=== PATIENT | female | born 1990 ===

== ENCOUNTER 2019-10-25 07:37 | Outpatient (CLI) | payer OTHER | END 2019-10-25 07:38 | disposition home or self-care (01) | LOC: SONOGRAMA 07:37 | DX: E04.2 Nontoxic multinodular goiter (principal) ==

== ENCOUNTER 2019-11-28 07:53 | Day surgery (SDC) | payer OTHER ==
[~2019-11-28 07:53] MED LIST: SYNTHROID50 MCG PO
[2019-11-28] MEDS ORDERED: PERCOCET 5-3251 EACH PO (13:01)
== END 2019-11-28 17:00 | disposition home or self-care (01) ==
LOC: CIR.AMB 07:53 → ADM 08:30 → CIR.AMB 08:30
DX: C73 Malignant neoplasm of thyroid gland (principal)

== ENCOUNTER 2020-04-25 06:00 | Outpatient (CLI) | payer OTHER ==
[~2020-04-25 06:00] MED LIST changes: +PERCOCET 5-3251 EACH PO
== END 2020-04-25 06:05 | disposition home or self-care (01) ==
LOC: LAB 06:00 → EDSTATUS 04-30 09:15 → CIR.AMB 04-30 09:15 → O/R 04-30 09:15 → CIR.AMB 04-30 09:30
PROVIDERS: ATTEND Surgery
DX: C73 Malignant neoplasm of thyroid gland (principal); Z20.828 Contact with and (suspected) exposure to other viral communicable diseases; Z01.812 Encounter for preprocedural laboratory examination; R05 Cough

== ENCOUNTER 2020-06-06 06:44 | Inpatient (IN) | payer OTHER ==
[~2020-06-06] VITALS: Ht 165.1 cm; Wt 67.1 kg
[2020-06-11] MEDS ORDERED: SYNTHROID88 MCG PO (08:25)
[2020-06-12] MEDS ORDERED: PERCOCET 5-3251 EACH PO (11:11)
== END 2020-06-12 13:00 | disposition home or self-care (01) | DRG 627 ==
LOC: O/R 06-11 05:48 → SURG 06-11 05:48 → RECOVERY 06-11 05:48 → CIR.AMB 06-11 07:00 → O/R 06-11 07:00 → RECOVERY 06-11 07:00 → EDSTATUS 06-11 07:00 → RECOVERY 06-11 10:20 → O/R 06-11 11:31 → SURG 06-11 11:31 → O/R 06-12 13:00 → CIR.AMB 06-12 13:00
PROVIDERS: ADMIT Surgery; ATTEND Surgery
PROC: 0GTH0ZZ Resection of Right Thyroid Gland Lobe, Open Approach (ICD-10-PCS; principal; 2020-06-11 07:00)
DX: C73 Malignant neoplasm of thyroid gland (principal); E06.3 Autoimmune thyroiditis